=== PATIENT | female | born 2000 | race Caucasian/White ===

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

== ENCOUNTER 2020-03-10 11:14 | Emergency (ER) | payer BC ==
[~2020-03-10] VITALS: Ht 172.7 cm; Wt 68.0 kg
[2020-03-10 11:50] LABS: BASOPHILS ABSOLUTE AUTO 0.04 K/mm3 (0.00-0.23); BASOPHILS PERCENT AUTO 1 % (0-2); EOSINOPHILS ABSOLUTE AUTO 0.07 K/mm3 (0.00-0.68); EOSINOPHILS PERCENT AUTO 1 % (0-6); Hemoglobin 13.6 g/dL (11.5-16.0); IMMATURE GRAN ABSOLUTE AUTO 0.02 K/mm3 (0.00-0.10); IMMATURE GRAN PERCENT AUTO 0 % (0-1); LYMPHOCYTES ABSOLUTE AUTO 0.67 K/mm3 (0.84-5.20); LYMPHOCYTES PERCENT AUTO 10 % (21-46); MONOCYTES ABSOLUTE AUTO 0.75 K/mm3 (0.16-1.47); MONOCYTES PERCENT AUTO 12 % (4-13); Mean Corpuscular HGB 29.6 pg (26.0-34.0); Mean Corpuscular HGB Conc 31.6 g/dL (31.5-36.5); Mean Corpuscular Volume 94 fL (80-100); Mean Platelet Volume 10.6 fL (9.1-12.4); NEUTROPHILS ABSOLUTE AUTO 4.97 K/mm3 (1.96-9.15); NEUTROPHILS PERCENT AUTO 76 % (41-73); Platelet Count 269 K/mm3 (150-400); RDW Coefficient Variation 13.2 % (11.7-14.2); RDW Standard Deviation 44.9 fL (35.1-46.3); White Blood Cell Count 6.52 K/mm3 (4.00-11.30)
[2020-03-10 12:16] LABS: Alanine Aminotransfer (ALT/SGP 26 U/L (12-78); Albumin, Blood 4.5 g/dL (3.4-5.0); Albumin/Globulin Ratio 1.1 (0.8-1.8); Alk Phos 73 U/L (50-136); Anion Gap 4 mmol/L (6-16); Aspartate Aminotrans (AST/SGOT 24 U/L (12-37); Bilirubin, Total 1.1 mg/dL (0.1-1.0); Blood Urea Nitrogen 12 mg/dL (8-24); Bun/Creatinine Ratio 16.9 (12.0-20.0); CO2, Blood 29 mmol/L (21-32); Calcium, Blood 9.1 mg/dL (8.5-10.1); Chloride, Blood 107 mmol/L (98-108); Creatinine, Blood 0.71 mg/dL (0.40-1.00); Globulin, Blood 4.2 g/dL (2.2-4.0); Glomerular Filtration Rate >60 (60-); Glucose, Blood 70 mg/dL (70-99); Sodium, Blood 140 mmol/L (136-145); Total Protein, Blood 8.7 g/dL (6.4-8.2)
[2020-03-10 12:20] LABS: Source, Urine Clean Catch
[2020-03-10 12:23] LABS: Bilirubin, Urine Neg (Neg); Blood, Urine 1+ (Neg); Glucose Qualitative, Urine Neg (Neg); Ketones, Urine Neg (Neg); Leukocyte Esterase, Urine Neg (Neg); Nitrite, Urine Neg (Neg); Protein, Urine Neg (Neg); Specific Gravity, Urine 1.015 (1.003-1.022); Urobilinogen, Urine NORM (Normal)
[2020-03-10 12:34] LABS: Appearance, Urine Hazy (Clear); Color, Urine Yellow (P-Yellow)
[2020-03-10] MEDS ORDERED: IBUP400 PO (12:34)
[2020-03-10 12:37] LABS: Amorphous Heavy (0-Heavy); Bacteria Rare /hpf; Squamous Epithelial Cells Few /hpf (Few); White Blood Cells, Urine 0-2 /hpf (0-5)
== END 2020-03-10 12:49 | disposition home or self-care (01) ==
LOC: ER 11:14
PROVIDERS: Emergency Medicine
DX: N93.9 Abnormal uterine and vaginal bleeding, unspecified (principal); R55 Syncope and collapse; F17.200 Nicotine dependence, unspecified, uncomplicated; Z88.5 Allergy status to narcotic agent
CPT/HCPCS: 36415; 76830; 76856; 80053; 81001; 83690; 84702; 85025; 96360; 99284-25; J7120

== ENCOUNTER 2024-03-28 06:55 | Emergency (ER) | payer OTHER ==
[~2024-03-28] VITALS: Ht 170.2 cm; Wt 70.3 kg
[~2024-03-28 06:55] MED LIST changes: +IBUP400 PO
[2024-03-28 07:15] VITALS: BP 101/67
[2024-03-28 07:32] LABS: Source, Urine Clean Catch
[2024-03-28 07:41] LABS: Appearance, Urine Hazy (Clear); Bilirubin, Urine Neg (Neg); Blood, Urine Neg (Neg); Color, Urine Yellow (P-Yellow); Glucose Qualitative, Urine Neg (Neg); Ketones, Urine Neg (Neg); Leukocyte Esterase, Urine 3+ (Neg); Nitrite, Urine Neg (Neg); Protein, Urine Neg (Neg); Specific Gravity, Urine 1.015 (1.003-1.022); Urobilinogen, Urine NORM (Normal)
[2024-03-28 07:54] LABS: Amorphous Heavy (0-Heavy); Bacteria Few /hpf
[2024-03-28 07:55] LABS: Red Blood Cells, Urine 0-2 /hpf (0-2)
[2024-03-28 07:56] LABS: Squamous Epithelial Cells Mod /hpf (Few)
[2024-03-28] MEDS ORDERED: Trimethoprim/Sulfamethoxazole DS Tab PO ONE (08:25)
[2024-03-28] MEDS ORDERED: Bactrim Ds Tab1 EACH PO (08:32)
== END 2024-03-28 08:37 | disposition home or self-care (01) ==
LOC: ER 06:55
PROVIDERS: Emergency Medicine
DX: R10.9 Unspecified abdominal pain (principal)
CPT/HCPCS: 81001; 81025; 87086; 99284; A9270

== ENCOUNTER → 2024-06-18 | Outpatient (CLI) | payer BC ==
[~2024-06-18] MED LIST changes: +Bactrim Ds Tab1 EACH PO
[2024-06-18 13:05] LABS: Bacterial Vaginosis PCR Negative (NEGATIVE); Candida Group, PCR NOT DETECTED (NOT DETECT); Candida glabrata-krusei, PCR NOT DETECTED (NOT DETECT)
[2024-06-20 12:19] LABS: APTIMA MEDIA TYPE Unisex Swab; C. TRACHOMATIS BY TMA Negative (Negative); N. GONORRHOEAE BY TMA Negative (Negative); SPECIMEN SOURCE Cervical
== END ==
LOC: LAB SHORT 07:46 → LAB 07:46
PROVIDERS: Chiropractor
DX: R30.0 Dysuria (principal); N89.8 Other specified noninflammatory disorders of vagina
CPT/HCPCS: 87086; 87481; 87491; 87591; 87661; 87801

== ENCOUNTER → 2024-10-14 | Outpatient (CLI) | payer BC | LOC: LAB SHORT 09:30 | DX: R30.0 Dysuria (principal) | CPT/HCPCS: 87086 ==

== ENCOUNTER → 2025-03-31 | Outpatient (CLI) | payer BC | LOC: LAB SHORT 14:57 | DX: O09.93 Supervision of high risk pregnancy, unspecified, third trimester (principal) | CPT/HCPCS: 87081; 87150 ==

== ENCOUNTER 2025-05-03 06:02 | Inpatient (IN) | payer BC ==
[~2025-05-03] VITALS: Ht 172.7 cm; Wt 83.0 kg
[2025-05-03] VITALS (26 sets, daily range): BP systolic 96–120; BP diastolic 55–82
[2025-05-03] MEDS ORDERED: Carboprost Tromethamine 250 MCG/ML 1ML Amp IM PRN ×2 (06:20→22:05)
[2025-05-03] MEDS ORDERED: Tranexamic Acid 100 ML IV SCH (06:20)
[2025-05-03] MEDS ORDERED: Methylergonovine Maleate 0.2MG / ML 1ML Amp IM PRN ×2 (06:20→22:10)
[2025-05-03] MEDS ORDERED: Oxytocin 10 Unit / ML Vial IM PRN (06:20)
[2025-05-03] MEDS ORDERED: OXYTOCIN/RINGER'S LACTATE 500 ML IV PRN (06:20)
[2025-05-03] MEDS ORDERED: FentaNYL 2mcg/ml-Bup 0.1% Epd 250 ML EPI PRN (06:20)
[2025-05-03] MEDS ORDERED: ePHEDrine Sulfate 50 MG/ML 1ML Injection XX PRN (06:20)
[2025-05-03] MEDS ORDERED: Ondansetron HCl 2 MG / ML 2ML Vial IV PRN (06:30)
[2025-05-03] MEDS ORDERED: FentaNYL Citrate 50 MCG/ML 2 ML Injection IV PRN (06:30)
[2025-05-03] MEDS ORDERED: ACYC400 PO (07:26)
[2025-05-03] MEDS ORDERED: PRENATAL TABLE1 EAC2 (07:27)
[2025-05-03 08:32] LABS: BASOPHILS ABSOLUTE AUTO 0.02 K/mm3 (0.00-0.23); BASOPHILS PERCENT AUTO 0 % (0-2); EOSINOPHILS ABSOLUTE AUTO 0.03 K/mm3 (0.00-0.68); EOSINOPHILS PERCENT AUTO 0 % (0-6); Hematocrit 38.6 % (33.0-51.0); Hemoglobin 12.8 g/dL (11.5-16.0); IMMATURE GRAN ABSOLUTE AUTO 0.03 K/mm3 (0.00-0.10); IMMATURE GRAN PERCENT AUTO 0 % (0-1); LYMPHOCYTES ABSOLUTE AUTO 0.93 K/mm3 (0.84-5.20); LYMPHOCYTES PERCENT AUTO 11 % (21-46); MONOCYTES ABSOLUTE AUTO 0.76 K/mm3 (0.16-1.47); MONOCYTES PERCENT AUTO 9 % (4-13); Mean Corpuscular HGB Conc 33.2 g/dL (31.5-36.5); Mean Corpuscular Volume 89 fL (80-100); NEUTROPHILS ABSOLUTE AUTO 6.99 K/mm3 (1.96-9.15); NEUTROPHILS PERCENT AUTO 80 % (41-73); NRBC ABSOLUTE 0.00 K/mm3 (0.00-0.02); NRBC Auto 0.0 /100 WBC (0.0-0.2); Platelet Count 206 K/mm3 (150-400); RDW Coefficient Variation 14.8 % (11.7-14.2); RDW Standard Deviation 48.5 fL (35.1-46.3)
[2025-05-03] MEDS ORDERED: LORazepam 2 MG/ML 1ML Injection IV PRN (15:35)
[2025-05-03] MEDS ORDERED: Midazolam HCl 1MG / ML 2ML Vial IV PRN (15:50)
--- NOTE | 2025-05-03 19:15 | NUR ---
patient up in room adlib in active labor with wireless monitoring.
[2025-05-03] MEDS ORDERED: Witch Hazel/Glycerin PADS TOP PRN (22:05)
[2025-05-03] MEDS ORDERED: Ketorolac Tromethamine 30mg Vial IV PRN (22:05)
[2025-05-03] MEDS ORDERED: Benzocaine Topical Anesthetic Spray 60GM TOP PRN (22:05)
[2025-05-03] MEDS ORDERED: OXYTOCIN/RINGER'S LACTATE 500 ML IV SCH (22:10)
--- NOTE | 2025-05-04 01:32 | NUR ---
AFTER VAGINAL DELIVERY AND [employer]CH STORE MANAGER ATTEMPTED TO AMBULATE PATIENT TO BATHROOM. PATIENT BECAME DIZZY AND STATED SHE DID NOT FEEL WELL. PATIENT REMAINED IN LABOR BED AND RN PLACED PATIENT SUPINE AND BEGAN SERIAL V/S AND PULSE OXIMETRY. FUNDAL ASSESSMENT PERFORMED. OXYTOCIN AND HEMMORHAGE PROTOCOL INITIATED. RAMOS CATHETER PLACED. PATIENT REMAINED STABLE AND RESPONDED WNL TO INTERVENTIONS. AFTER BLADDER MANAGEMENT PATIENT PLACED IN HIGH FOWLERS AND STATES FEELINGS BACK TO BASELINE POST VAGINAL DELIVERY. PATIENT TAKING PO JUICE AND WATER AND EATING A SNACK WHILE INFANT PLACED TO
[2025-05-04 03:33] VITALS: BP 107/66
[2025-05-04 07:33] LABS: BASOPHILS ABSOLUTE AUTO 0.03 K/mm3 (0.00-0.23); BASOPHILS PERCENT AUTO 0 % (0-2); EOSINOPHILS ABSOLUTE AUTO 0.02 K/mm3 (0.00-0.68); EOSINOPHILS PERCENT AUTO 0 % (0-6); Hematocrit 31.0 % (33.0-51.0); Hemoglobin 10.6 g/dL (11.5-16.0); IMMATURE GRAN ABSOLUTE AUTO 0.07 K/mm3 (0.00-0.10); IMMATURE GRAN PERCENT AUTO 1 % (0-1); LYMPHOCYTES ABSOLUTE AUTO 1.10 K/mm3 (0.84-5.20); LYMPHOCYTES PERCENT AUTO 9 % (21-46); MONOCYTES ABSOLUTE AUTO 1.18 K/mm3 (0.16-1.47); MONOCYTES PERCENT AUTO 9 % (4-13); Mean Corpuscular HGB Conc 34.2 g/dL (31.5-36.5); Mean Corpuscular Volume 89 fL (80-100); NEUTROPHILS ABSOLUTE AUTO 10.50 K/mm3 (1.96-9.15); NEUTROPHILS PERCENT AUTO 82 % (41-73); NRBC ABSOLUTE 0.00 K/mm3 (0.00-0.02); NRBC Auto 0.0 /100 WBC (0.0-0.2); Platelet Count 208 K/mm3 (150-400); RDW Coefficient Variation 14.9 % (11.7-14.2); RDW Standard Deviation 48.0 fL (35.1-46.3)
[2025-05-04 08:28] VITALS: BP 101/57
[2025-05-04] MEDS ORDERED: Prenatal Vit/FE Fumarate/FA 1 Tab PO SCH (09:00)
[2025-05-04 11:33] VITALS: BP 95/63
[2025-05-04 17:13] VITALS: BP 116/63
[2025-05-04 19:35] VITALS: BP 106/59
[2025-05-04 22:51] VITALS: BP 112/66
[2025-05-05 07:57] VITALS: BP 110/65
[2025-05-05] MEDS ORDERED: IBUP800 PO (08:14)
[2025-05-05 13:09] VITALS: BP 114/72
== END 2025-05-05 14:20 | disposition home or self-care (01) | DRG 807 ==
LOC: OBS 06:02 → BC 06:05 → OBS 06:43 → BC 06:44
PROVIDERS: Family Medicine; ADMIT Obstetrics & Gynecology
PROC: 10E0XZZ Delivery of Products of Conception, External Approach (ICD-10-PCS; principal; 2025-05-03)
PROC: 0KQM0ZZ Repair Perineum Muscle, Open Approach (ICD-10-PCS; 2025-05-03)
PROC: 4A1HXCZ Monitoring of Products of Conception, Cardiac Rate, External Approach (ICD-10-PCS; 2025-05-03)
DX: O98.32 Other infections with a predominantly sexual mode of transmission complicating childbirth (principal); Z37.0 Single live birth; A60.00 Herpesviral infection of urogenital system, unspecified; Z87.74 Personal history of (corrected) congenital malformations of heart and circulatory system; Z3A.39 39 weeks gestation of pregnancy; Z87.891 Personal history of nicotine dependence; Z88.5 Allergy status to narcotic agent; O76 Abnormality in fetal heart rate and rhythm complicating labor and delivery; R33.9 Retention of urine, unspecified; O99.893 Other specified diseases and conditions complicating puerperium; O69.81X0 Labor and delivery complicated by cord around neck, without compression, not applicable or unspecified; O70.1 Second degree perineal laceration during delivery
CPT/HCPCS: 36415; 51702; 85025; 86850; 86900; 86901; A9270; J1885; J2405; J3010